=== PATIENT | female | born 1965 | race Caucasian/White ===

== ENCOUNTER 2019-05-30 08:48 | Emergency (ER) | payer BC, OTHER ==
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
[2019-05-30] MEDS: Ketorolac 30 MG/ML SDV IVPUSH ONE (09:18)
[2019-05-30] MEDS: Ondansetron 4 MG/2 ML SDV IV ONE (09:18)
[2019-05-30 09:44] LABS: ANION GAP 14.1; CHLORIDE,CL 103 mmol/L (101-111); SODIUM,NA 138 mmol/L (135-145)
[2019-05-30] MEDS: Sodium Chloride 0.9% 10 ML Syringe FLUSH PRN (10:14)
[2019-05-30 11:06] VITALS: BP 142/60
== END 2019-05-30 10:58 | disposition home or self-care (01) ==
LOC: DL.ED 08:48
DX: S16.1XXA Strain of muscle, fascia and tendon at neck level, initial encounter (principal); M54.5 Low back pain; F41.9 Anxiety disorder, unspecified; F32.9 Major depressive disorder, single episode, unspecified; F17.210 Nicotine dependence, cigarettes, uncomplicated; Z88.2 Allergy status to sulfonamides; Z79.899 Other long term (current) drug therapy; V49.40XA Driver injured in collision with unspecified motor vehicles in traffic accident, initial encounter
CPT/HCPCS: 36415; 72040; 72100; 80053; 81001; 82150; 83690; 85025; 96374; 96375; 99284; J1885; J2405

== ENCOUNTER 2021-03-15 06:34 | Day surgery (SDC) | payer BC, OTHER ==
[~2021-03-15 06:34] MED LIST: Midazolam 1 MG/ML 2 ML SDV ONE; fentaNYL 100 MCG/2 ML SDV ONE
[2021-03-15] MEDS ORDERED: fentaNYL 100 MCG/2 ML SDV IV ONE ×4 (06:35→07:47)
[2021-03-15] MEDS ORDERED: Midazolam 1 MG/ML 2 ML SDV IV ONE ×7 (06:35→07:41)
[2021-03-15] MEDS ORDERED: Sodium Chloride 0.9% 10 ML Syringe FLUSH PRN (07:50)
[2021-03-15] MEDS ORDERED: Dextrose 5%-0.45% NaCl 1,000 ML IV SCH (08:00)
[2021-03-15 09:22] VITALS: PULSE 69
[2021-03-15 10:00] VITALS: BP 115/63
--- NOTE | 2021-03-15 12:57 | OR ---
DATE: 03/15/2021 PROCEDURE: Total colonoscopy and multiple pinch biopsies. INSTRUMENT USED: [id number]-H190DL Olympus video colonoscope. PREMEDICATIONS: Fentanyl 125 mcg intravenous, Versed 4 mg intravenous, nasal O2 cannula. The procedure was done under pulse oximetry, BP recording, and hospital monitor. INDICATION: The patient with chronic unexplained diarrhea, not responsive to medical measures. Colonoscopic examination is done for detection of any polypoid lesions and removal, biopsies to be obtained for any evidence of microscopic colitis, endoscopic hemostasis therapy if needed. DESCRIPTION OF PROCEDURE: Initial rectal exam was unremarkable. Rigid anoscopy was normal. The colonoscope was passed with ease up to the ileocecal area. Photographs were taken of the normal-appearing cecum, identified by appendiceal orifice and thin-lipped ileocecal valve that prevented advancement of the instrument to visualize terminal ileum. No bleeding was noted from any of the visualized areas at the commencement of the examination. The bowel preparation was found to be adequate, [place] scale 2 in all the regions, total score 6. No stricture. No vascular ectasia. No large isolated ulcerations seen. No evidence of diffuse inflammatory bowel disease in the form of friability, contact bleeding, or ulcerations. No polyp or tumor mass identified. Probing the proximal sides of folds and flexures using adequate distention and clearing up the stool material, withdrawal of the scope was made. Multiple pinch biopsies were obtained from the normal-appearing mucosa of the mid transverse colon, mid descending colon, and rectosigmoid, and sent for any histopathologic evidence of microscopic colitis. No bleeding was noted from any of the visualized areas at the completion of examination. IMPRESSION: Normal study. The patient tolerated the procedure well. [facility] /[id number]
== END 2021-03-15 09:59 | disposition home or self-care (01) ==
LOC: DL.ENDO 06:34
PROVIDERS: ATTEND Internal Medicine Gastroenterology
DX: K52.9 Noninfective gastroenteritis and colitis, unspecified (principal); R10.9 Unspecified abdominal pain; F41.1 Generalized anxiety disorder; K21.9 Gastro-esophageal reflux disease without esophagitis; Z98.890 Other specified postprocedural states; Z88.2 Allergy status to sulfonamides
CPT/HCPCS: 45380; J2250; J3010; J7042

== ENCOUNTER 2021-10-30 14:14 | Inpatient (IN) | payer BC ==
[2021-10-30] MEDS ORDERED: LORazepam 2 MG/ML SDV IVPUSH ONE (14:21)
[2021-10-30] MEDS ORDERED: Lidocaine 1% 30 ML SDV INJECT ONE (14:22)
[2021-10-30] MEDS ORDERED: Midazolam 1 MG/ML 2 ML SDV IVPUSH ONE ×2 (14:24→15:28)
[2021-10-30] MEDS ORDERED: fentaNYL 100 MCG/2 ML SDV ONE (14:30)
--- NOTE | 2021-10-30 14:34 | CR ---
EXAMINATION: Chest 1V Frontal SEX: Female AGE: 56 years CLINICAL HISTORY: 56-year-old female with clinical SOB. Comparison CXR July 2018. INTERPRETATION: No acute new cardiopulmonary abnormality. 1. Normal cardiac silhouette (size and configuration). 2. No vascular congestion, cephalization of flow, alveolar edema or pleural effusions (chronic mild blunting right costophrenic sulcus). 3. No new lung mass or hilar lymphadenopathy since July 2018. 4. No alveolar infiltrate, air bronchograms or peripheral "groundglass" interstitial lung densities. 5. No pneumothorax or pneumomediastinum. No free subdiaphragmatic air. 6. Probable chronic rotator cuff damage right shoulder and apparent old healed fracture lateral right ninth rib
[2021-10-30] MEDS ORDERED: Midazolam 1 MG/ML 2 ML SDV ONE (14:38)
[2021-10-30] MEDS ORDERED: fentaNYL 100 MCG/2 ML SDV IVPUSH ONE ×3 (15:28→18:14)
[2021-10-30] MEDS ORDERED: Ondansetron 4 MG/2 ML SDV IV ONE (15:33)
--- NOTE | 2021-10-30 15:34 | EDM.PDOC ---
<Camron Irizarry - Last Filed: 10/30/21 16:31> ED HPI GENERAL MEDICAL PROBLEM - General Chief Complaint: Respiratory Problem Stated Complaint: AMBULANCE Time Seen by Provider: 10/30/21 14:20 Right Chest Pain Score (Numeric/FACES): 10 - Related Data Allergies Allergy/AdvReac Type Severity Reaction Status Date / Time Sulfa (Sulfonamide Allergy Intermediate Hives Verified 03/15/21 06:38 Antibiotics) Home Meds: Home Meds Albuterol Sulfate [Proair Respiclick] 1 puff INH ASDIRECTED PRN 05/24/15 [History] Ascorbic Acid 1 tab PO DAILY 05/24/15 [History] Ca/D3/Mag Ox/Zinc/Edge Plugger/Agusto/Bor [Calcium 600+D3 Plus Caplet] 1 tab PO DAILY 05/24/15 [History] Cyanocobalamin (Vitamin B-12) [Vitamin B-12] 1 tab PO DAILY 05/24/15 [History] Fish Oil/[place]-3 Fatty Acids [Fish Oil 1,000 MG] 1 tab PO DAILY 05/24/15 [History] Ibuprofen [Advil] 600 mg PO BID PRN 05/24/15 [History] Multivitamin with Minerals [Multiple Vitamin] 1 tab PO DAILY 05/24/15 [History] Acetaminophen [Tylenol] 650 mg PO Q4H PRN 05/31/15 [History] Dextroamphetamine/Amphetamine [Adderall 7.5 mg Tablet] 7.5 mg PO BID 12/23/16 [History] Cyclobenzaprine [Flexeril] 10 mg PO TID PRN 03/15/21 [History] DULoxetine [Cymbalta] 60 mg PO BID 03/15/21 [History] Gabapentin [Neurontin] 800 mg PO TID 03/15/21 [History] Medical Marijuana 1 unit INH DAILY PRN 03/15/21 [History] Montelukast [Singulair] 10 mg PO DAILY 03/15/21 [History] Omeprazole 20 mg PO BIDAC 03/15/21 [History] Past Medical History HEENT History: Reports: Hard of Hearing, Impaired Vision, Sinusitis Cardiovascular History: Reports: None Respiratory History: Reports: Asthma Other Respiratory History: Environmental allergies Gastrointestinal History: Reports: GERD, Irritable Bowel Syndrome Genitourinary History: Reports: None TILE MASON History: Reports: Spontaneous Musculoskeletal History: Reports: Arthritis, Fibromyalgia Neurological History: Reports: None Psychiatric History: Reports: ADHD, Anxiety, Depression Endocrine/Metabolic History: Reports: None Hematologic History: Reports: None Immunologic History: Reports: None Oncologic (Cancer) History: Reports: None Dermatologic History: Reports: None - Infectious Disease History Infectious Disease History: Reports: MRSA, Mumps, Shingles - Past Surgical History Head Surgeries/Procedures: Reports: None HEENT Surgical History: Reports: Adenoidectomy, Naso-Sinus Surgery, Tonsillectomy Other HEENT Surgeries/Procedures: nasal sinus surgery Cardiovascular Surgical History: Reports: None Respiratory Surgical History: Reports: None GI Surgical History: Reports: Colonoscopy, EGD Female Surgical History: Reports: Hysterectomy, LEEP Other Female Surgeries/Procedures: vaginal cervical LEEP treatment, cyst removal Endocrine Surgical History: Reports: None Neurological Surgical History: Reports: None Musculoskeletal Surgical History: Reports: Carpal Tunnel Social & Family History - Family History Family Medical History: No Pertinent Family History - Tobacco Use Tobacco Use Status *Q: Current Every Day Tobacco User Years of Tobacco use: 30 Packs/Tins Daily: 0.5 - Caffeine Use Caffeine Use: Reports: None Caffeine Use Comment: coffee 3 cups daily. rare soda - Recreational Drug Use Recreational Drug Use: No - Living Situation & Occupation Living situation: Reports: with Family ED RESPIRATORY PROCEDURES - Chest Tube Insertion Chest Tube Location: Right Site: Mid Axillary Line, Intercostal Space: (5) Tube Size: 28Fr Skin Prep: Betadine Local Anesthesia - Lidocaine (Xylocaine): 1% Plain Local Anesthetic Volume: Other (6cc) Nagel of [place]: Yes Number of Attempts: 1 Tube Sutured to Skin: Yes Post procedure tube position confirmed by: by CXR Tube Connected to Suction: Yes Course - Re-Assessments/Exams Free Text/Narrative Re-Assessment/Exam: 10/30/21 16:31 At the time of chest tube insertion the pt was in distress. Verbal consent was obtained from the pt for the procedure with Dr. Casey and RNs present when pt offered consent. Departure - Departure Disposition: Refer to Observation Clinical Impression: Iatrogenic pneumothorax, Pneumothorax, right - Discharge Information Forms: ED Department Discharge Sepsis Event Note (ED) - Evaluation Sepsis Screening Result: No Definite Risk <Manuel Casey - Last Filed: 10/30/21 16:45> ED HPI GENERAL MEDICAL PROBLEM - General Source of Information: Reports: Patient, RN, RN Notes Reviewed History Limitations: Reports: No Limitations - History of Present Illness INITIAL COMMENTS - FREE TEXT/NARRATIVE: Pt sent from [facility] by wheelchair with c/o sudden onset of right chest pain with dyspnea and anxiety that occurred during a trigger point injection to the right trapezius region by a pain clinic nurse practitioner next door to the hospital at the [facility]. Pt rates the pain 10/10. Breathing and movement of the thorax aggravates the pain. Nothing alleviates the pain. Onset: Today, Sudden Onset Date: 10/30/21 Onset Time: 14:00 (approximate time per pt.) Duration: Constant, Getting Worse Location: Reports: Chest Quality: Reports: Ache, Pressure, Sharp Severity: Severe Associated Symptoms: Reports: No Other Symptoms Past Medical History HEENT History: Reports: Allergic Rhinitis Respiratory History: Reports: Asthma, COPD Musculoskeletal History: Reports: Arthritis, Back Pain, Chronic, Fibromyalgia, Neck Pain, Chronic Neurological History: Reports: Other (See Below) (Sciatica. Cervical radiculopathy.) Social & Family History - Family History Family Medical History: No Pertinent Family History - Tobacco Use Tobacco Use Status *Q: Current Every Day Tobacco User - Living Situation & Occupation Living situation: Reports: , with Spouse, with Family ED ROS GENERAL - Review of Systems Review Of Systems: Comprehensive ROS is negative, except as noted in HPI. ED EXAM, GENERAL - Physical Exam Exam: See Below Exam Limited By: No Limitations General Appearance: Alert, WD/WN, Anxious, Moderate Distress Eye Exam: Bilateral Eye: Normal Inspection Nose: Normal Inspection Throat/Mouth: Normal Inspection, Normal Lips, Normal Voice, No Airway Compromise Head: Atraumatic, Normocephalic Neck: Normal Inspection, Supple, Non-Tender, Full Range of Motion. No: Lymphadenopathy (L), Lymphadenopathy (R) Respiratory/Chest: Respiratory Distress, Decreased Breath Sounds (Rt chest), Splinting. No: Crackles, Rales, Rhonchi, Wheezing, Stridor, Pleural Rub Cardiovascular: Normal Peripheral Pulses, Regular Rate, Rhythm, No Edema, Tachycardia GI/Abdominal: Normal Bowel Sounds, Soft, Non-Tender Back Exam: Normal Inspection Extremities: Normal Inspection Neurological: Alert, Oriented, CN II-XII Intact, Normal Cognition, No Motor/Sensory Deficits Psychiatric: Anxious, Tearful Skin Exam: Warm, Dry, Intact, Normal Color, No Rash Course - Vital Signs Last Recorded V/S: Last Vital Signs Temp 97.4 F 10/30/21 14:19 Pulse 124 H 10/30/21 14:19 Resp 36 H 10/30/21 14:19 BP 138/124 H 10/30/21 14:19 Pulse Ox 99 10/30/21 14:19 - Orders/Labs/Meds Orders: Active Orders 24 hr Category Date Time Status CORONAVIRUS COVID-19 DALJIT [MOLEC] Stat Lab 10/30/21 16:12 Ordered Meds: Medications Discontinued Medications Generic Name Dose Route Start Last Admin Trade Name Freq PRN Reason Stop Dose Admin Fentanyl Confirm 10/30/21 14:30 10/30/21 15:29 Fentanyl 100 Mcg/2 Ml Sdv Administered 10/30/21 14:31 Not Given Dose 100 mcg .ROUTE .STK-MED ONE Fentanyl 100 mcg 10/30/21 15:28 10/30/21 14:27 Fentanyl 100 Mcg/2 Ml Sdv IVPUSH 10/30/21 15:29 100 mcg ONETIME ONE Administration Protocol Fentanyl 50 mcg 10/30/21 15:32 10/30/21 16:01 Fentanyl 100 Mcg/2 Ml Sdv IVPUSH 10/30/21 15:33 50 mcg ONETIME ONE Administration Protocol Cefazolin Sodium 1 gm/ Sodium 50 mls @ 100 mls/hr 10/30/21 15:36 10/30/21 16:01 Chloride IV 10/30/21 16:05 100 mls/hr ONETIME ONE Administration Lidocaine HCl 30 ml 10/30/21 14:22 10/30/21 14:27 Lidocaine 1% 30 Ml Sdv INJECT 10/30/21 14:23 30 ml ONETIME ONE Administration Lorazepam 2 mg 10/30/21 14:21 Lorazepam 2 Mg/Ml Sdv IVPUSH 10/30/21 14:22 ONETIME ONE Midazolam HCl 2 mg 10/30/21 14:24 10/30/21 14:44 Midazolam 1 Mg/Ml 2 Ml Sdv IVPUSH 10/30/21 14:25 2 mg ONETIME ONE Administration Midazolam HCl Confirm 10/30/21 14:38 10/30/21 15:29 Midazolam 1 Mg/Ml 2 Ml Sdv Administered 10/30/21 14:39 Not Given Dose 2 mg .ROUTE .STK-MED ONE Midazolam HCl 2 mg 10/30/21 15:28 10/30/21 14:27 Midazolam 1 Mg/Ml 2 Ml Sdv IVPUSH 10/30/21 15:29 2 mg ONETIME ONE Administration Ondansetron HCl 4 mg 10/30/21 15:33 10/30/21 16:01 Ondansetron 4 Mg/2 Ml Sdv IV 10/30/21 15:34 4 mg ONETIME ONE Administration - Radiology Interpretation Free Text/Narrative:: XR Chest: Rt pneumothorax, see Rad. report. XR Chest s/p chest tube placement: satisfactory tube placement per Rad. report. Departure - Departure Time of Disposition: 16:44 (admitted to Dr. Keiry Gallardo) Condition: Good - Discharge Information *PRESCRIPTION DRUG MONITORING PROGRAM REVIEWED*: Not Applicable *COPY OF PRESCRIPTION DRUG MONITORING REPORT IN PATIENT MG: Not Applicable Sepsis Event Note (ED) - Focused Exam Vital Signs: Vital Signs Temp Pulse Resp BP Pulse Ox 10/30/21 14:19 97.4 F 124 H 36 H 138/124 H 99 - My Orders Last 24 Hours: My Active Orders 10/30/21 16:12 CORONAVIRUS COVID-19 DALJIT [MOLEC] Stat - Assessment/Plan Last 24 Hours: My Active Orders 10/30/21 16:12 CORONAVIRUS COVID-19 DALJIT [MOLEC] Stat
--- NOTE | 2021-10-30 15:35 | CR ---
EXAMINATION: Chest 1V Frontal SEX: Female AGE: 56 years CLINICAL HISTORY: 56-year-old female small right pneumothorax (post muscle injection). Chest tube placement. INTERPRETATION: 1. Oxygen cannula; external front desk monitor leads; new chest tube right hemithorax. 2. Satisfactory resolution "small right pneumothorax" demonstrated earlier today. 3. No evidence of pneumothorax, subcutaneous emphysema, or pneumomediastinum post chest tube insertion. No shift of the heart or mediastinal structures. 4. No signs of heart failure, lung mass or lobar consolidation. CONCLUSION: Satisfactory right chest tube placement.
[2021-10-30] MEDS ORDERED: ceFAZolin 1 GM in Sodium Chloride 0.9% 50 ML IV ONE (15:36)
[2021-10-30] MEDS ORDERED: HYDROmorphone 0.5 MG/0.5 ML Syringe IVPUSH ONE (17:12)
[2021-10-30] MEDS ORDERED: Sodium Chloride 0.9% 10 ML Syringe FLUSH PRN (19:59)
[2021-10-30] MEDS ORDERED: HYDROmorphone 0.5 MG/0.5 ML Syringe IVPUSH PRN (19:59)
[2021-10-30] MEDS ORDERED: HYDROmorphone 1 MG/ML Syringe ONE ×2 (20:34→20:35)
[2021-10-30] MEDS ORDERED: HYDROmorphone 1 MG/ML Syringe IVPUSH ONE (20:44)
[2021-10-30] MEDS: LORazepam 2 MG/ML SDV IVPUSH PRN (21:05)
[2021-10-30] MEDS: Ondansetron 4 MG/2 ML SDV IVPUSH PRN (21:45)
[2021-10-30] MEDS: Lactated Ringers 1,000 ML IV SCH (21:46)
[2021-10-30] MEDS ORDERED: Omeprazole 20 MG Cap.CR PO PRN (22:32)
[2021-10-30] MEDS ORDERED: Acetaminophen 325 MG Tab PO PRN (22:32)
[2021-10-30] MEDS ORDERED: Albuterol 0.083% 2.5 MG/3 ML Neb Soln INH PRN (22:37)
--- NOTE | 2021-10-30 22:56 | CR ---
PROCEDURE INFORMATION: Exam: XR Chest Exam date and time: 10/30/2021 9:18 PM Age: 56 years old Clinical indication: Other: Pain TECHNIQUE: Imaging protocol: XR of the chest. Views: 1 view. COMPARISON: CR Chest 1V Frontal 10/30/2021 2:53 PM FINDINGS: Tubes, catheters and devices: Right-sided chest tube is in place. Lungs: Unremarkable. No consolidation. Pleural spaces: No residual pneumothorax. Heart/Mediastinum: Unremarkable. No cardiomegaly. Bones/joints: Unremarkable. IMPRESSION: No residual pneumothorax.
--- NOTE | 2021-10-30 23:30 | HP ---
HISTORY OF PRESENT ILLNESS: The patient is a 56-year-old female with history of fibromyalgia, presented to pain management clinic for trigger point injection for fibromyalgia, and during this procedure, she felt pain and difficulty breathing and the patient was transported to emergency room. The patient states that she felt right backache and this pain went all around and she felt she is going to suffocate. PAST MEDICAL HISTORY: She has fibromyalgia and bronchitis. PAST SURGICAL HISTORY: Lip surgery, ovarian surgery for cyst. REVIEW OF SYSTEMS: Twelve-point review of systems is negative except as in history of present illness. Also, the patient has dry cough. ALLERGIES: The patient is allergic to sulfa. SOCIAL HISTORY: She smokes 10 cigarettes a day for the past 30 years. No alcohol use. No drug use. 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 FAMILY HISTORY: Noncontributory. The patient could not give history due to pain. PHYSICAL EXAMINATION: Vital Signs: At presentation in the emergency room, temperature 97.4; pulse rate 124; blood pressure 138/124 with mean blood pressure 128; respiratory rate is 6, shallow; oxygen saturation 99%, oxygen flow rate 15. At admission, her vital signs were temperature of 98.4, pulse rate 84, blood pressure 125/76 with a mean of 92, respiratory rate 18, oxygen saturation 93% on 3 L. HEENT: The patient's head is atraumatic and normocephalic. Pupils are equally reactive to light. Neck: Supple. No thyromegaly. No lymphadenopathy. Heart: S1 and S2. Regular rhythm and rate. No murmur. Lungs: Breath sounds are present in bilateral lungs. There is a chest tube inserted in the right lower chest with continuous suction. Abdomen: Soft. Nontender. Positive bowel sounds. Extremities: No edema. LABORATORY DATA: The patient's CBC and CMP are pending. Serology, SARS COVID was positive. IMAGING: Chest x-ray shows normal cardiac silhouette. No vascular congestion or cephalization. No new lung mass or hilar lymphadenopathy. There was pneumothorax in the right upper lung. Repeat chest x-ray done at 2:53, after chest tube insertion, showed that the patient has oxygen , satisfactory resolution of small right pneumothorax demonstrated earlier today. No evidence of pneumothorax, subcutaneous emphysema, or pneumomediastinum post chest tube insertion. No shift of the heart or mediastinal structures. No signs of heart failure, lung mass, or lobar consolidation. ASSESSMENT AND PLAN: A 56-year-old female, presented to emergency room due to pneumothorax. She is status post chest tube insertion. The patient was supposed to be transferred to [facility], but due to bed not available, the patient has to stay here until tomorrow morning. She was admitted inpatient until further arrangement can be made. For pain, the patient will receive Dilaudid 1 mg q.2 hours p.r.n. as needed for pain and also Ativan 1 mg p.o. q.6 hours p.r.n. for anxiety. For DVT prophylaxis, the patient was started on Lovenox 40 mg subcutaneous daily and also buspirone 5 mg p.o. b.i.d. For ADHD, the patient has been continued with Adderall XR 7.5 mg p.o. b.i.d. For COPD, the patient will continue with montelukast 10 mg p.o. at bedtime and albuterol sulfate inhaler 2 puffs inhaled q.6 hours as needed, Augmentin 1 tablet p.o. b.i.d. For fibromyalgia, the patient will be continued with gabapentin 800 mg p.o. t.i.d. and duloxetine 60 mg p.o. b.i.d. For GI prophylaxis, omeprazole [address] [facility] /[id number]
[2021-10-30] MEDS: Codeine/Promethazine 10-6.25 MG/5 ML Syrup 5 ML UD Cup PO PRN (23:52)
[2021-10-30] MEDS: HYDROmorphone 1 MG/ML Syringe IVPUSH PRN (23:52)
[2021-10-31] MEDS: HYDROmorphone 1 MG/ML Syringe IVPUSH PRN ×6 (02:54→20:48)
[2021-10-31] MEDS: Codeine/Promethazine 10-6.25 MG/5 ML Syrup 5 ML UD Cup PO PRN ×2 (05:38→12:10)
[2021-10-31 06:50] LABS: ANION GAP 13.5 mEq/L (7-13); CHLORIDE,CL 98 mmol/L (98-107); SODIUM,NA 137 mmol/L (136-145)
[2021-10-31] MEDS ORDERED: [UNRECOGNIZED DRUG - OTHER] PO SCH (09:00)
[2021-10-31] MEDS ORDERED: AMPHETAMINE PO SCH ×2 (09:00)
[2021-10-31] MEDS ORDERED: Multivitamins with Iron/Calcium/Folic Acid/Minerals Tab PO SCH (09:00)
[2021-10-31] MEDS ORDERED: DEXTROAMPHETAMINE PO SCH ×2 (09:00)
[2021-10-31] MEDS ORDERED: Non-Formulary Medication 1 Each (Fish Oil/Omega-3 Fatty Acids [Fish Oil 1,000 Mg] 1 GM Cap PO SCH (09:00)
[2021-10-31] MEDS ORDERED: [UNRECOGNIZED DRUG - OTHER] PO SCH (09:00)
[2021-10-31] MEDS: DULoxetine 30 MG Cap PO SCH ×2 (09:34→20:48)
[2021-10-31] MEDS: Enoxaparin 40 MG/0.4 ML Syringe SUBCUT SCH (09:35)
[2021-10-31] MEDS: Gabapentin 400 MG Cap PO SCH ×3 (09:36→20:48)
[2021-10-31] MEDS: Amoxicillin/Clavulanate K 875-125 MG Tab PO SCH ×2 (10:57→20:48)
[2021-10-31] MEDS: Lactated Ringers 1,000 ML IV SCH ×2 (10:59→20:49)
[2021-10-31] MEDS: busPIRone 15 MG Tab PO SCH ×2 (12:11→20:48)
[2021-10-31] MEDS: Ondansetron 4 MG/2 ML SDV IVPUSH PRN (12:35)
[2021-10-31] MEDS: LORazepam 2 MG/ML SDV IVPUSH PRN ×2 (14:20→22:09)
--- NOTE | 2021-10-31 16:45 | CR ---
EXAMINATION: Chest 1V Frontal SEX: Female AGE: 56 years CLINICAL HISTORY: 56-year-old female with chest tube right hemithorax (treatment pneumothorax diagnosed AM on previous day. monitoring of pneumothorax Interpretation: (Rotated upright AP portable chest) Chest tube appears to have been "pulled back" slightly and straightened since comparison 1453 hour film 30 October. (Positional artifact?) No sign of recurrent or new pneumothorax. No underlying atelectasis/collapse. No pleural effusion. Normal cardiac silhouette and mediastinal structures.
[2021-10-31] MEDS ORDERED: LORazepam 2 MG/ML SDV IVPUSH ONE (18:00)
[2021-10-31 19:39] LABS: CORONAVIRUS COVID-19 NAA NEGATIVE (NEGATIVE)
--- NOTE | 2021-10-31 20:36 | PN ---
DATE: 10/31/2021 SUBJECTIVE: The patient was seen today. Her pain is better controlled. I have tried to make arrangements for the patient to be transferred to [facility] and I spoke with the hospitalist on-call. He recommended clamping of the tube and repeat chest x-ray after 4 hours and if no pneumothorax, chest tube should be removed. OBJECTIVE: Vital Signs: In the morning, the patient had a temperature of 98.6, pulse rate of 78, blood pressure 126/70, respiratory rate 20, oxygen saturation 98% on 2 L nasal cannula. HEENT: Her head is atraumatic, normocephalic. Pupils equally reactive to light. Neck: Supple. No thyromegaly. No lymphadenopathy. Lungs: Audible breath sounds bilateral. Clear to auscultation. Heart: S1, S2. Regular rhythm and rate. No murmur. Abdomen: Soft. Nontender. Positive bowel sounds. Extremities: No edema. IMAGING: Chest X-ray: Repeat chest x-ray at 4 o'clock shows no pneumothorax and chest tube appears to have been pulled back slightly and straightened since comparison to 1543 hours film on October 30. Chest tube was removed and the patient had an occlusive dressing placed with Vaseline and sterile compress. ASSESSMENT AND PLAN: Pneumothorax is resolved. Chest tube was clamped and removed after 4 hours after clamping after repeat chest x-ray showed no pneumothorax. We will repeat chest x-ray in the morning and if no pneumothorax or no difficulty breathing or signs of recurrent pneumothorax, then the patient can be discharged home. The patient had an occlusive dressing placed with Vaseline after the chest tube was removed. The patient has fibromyalgia, and for fibromyalgia, she will be continued with gabapentin 800 mg p.o. 3 times a day, duloxetine 60 mg p.o. b.i.d. For chronic obstructive pulmonary disease with chronic bronchitis, the patient will be continued with montelukast 10 mg p.o. at bedtime, albuterol sulfate 2 puffs inhaled every 6 hours, and Augmentin 1 tablet p.o. b.i.d. For GI prophylaxis, the patient will be given omeprazole 20 mg p.o. b.i.d. For DVT prophylaxis, Lovenox 40 mg subcutaneous daily. She will be getting Ativan 1 mg IV every 6 hours as needed for anxiety. Discharge planning tomorrow if chest x-ray is negative. [facility] /[id number]
[2021-10-31] MEDS: Montelukast 10 MG Tab PO SCH (20:48)
--- NOTE | 2021-10-31 21:30 | CR ---
PROCEDURE INFORMATION: Exam: XR Chest Exam date and time: 10/31/2021 9:01 PM Age: 56 years old Clinical indication: Other: Tube removal; Additional info: Chest tube removed TECHNIQUE: Imaging protocol: XR of the chest. Views: 1 view. COMPARISON: CR Chest 1V Frontal 10/31/2021 4:09 PM FINDINGS: Lungs: Unremarkable. No consolidation. Pleural spaces: Unremarkable. No pleural effusion. No pneumothorax. Heart/Mediastinum: Unremarkable. No cardiomegaly. Bones/joints: No evidence of acute osseous abnormality. Soft tissues: Mild right chest wall soft tissue emphysema. IMPRESSION: No evidence of right pneumothorax following removal of the chest tube.
[2021-10-31] MEDS: Nicotine 14 MG/24 Hr Patch TRDERM SCH (22:09)
[2021-10-31] MEDS: Simethicone 80 MG Tab.Chew PO PRN (22:09)
[2021-11-01] MEDS: HYDROmorphone 1 MG/ML Syringe IVPUSH PRN ×3 (00:36→06:33)
[2021-11-01] MEDS: LORazepam 2 MG/ML SDV IVPUSH PRN (06:34)
[2021-11-01 06:55] LABS: ANION GAP 10.2 mEq/L (7-13); CHLORIDE,CL 104 mmol/L (98-107); SODIUM,NA 142 mmol/L (136-145)
--- NOTE | 2021-11-01 08:58 | CR ---
PROCEDURE INFORMATION: Exam: XR Chest Exam date and time: 11/01/2021 7:42 AM Age: 56 years old Clinical indication: Other: Post pneumothorax; Additional info: Post-pneumothorax TECHNIQUE: Imaging protocol: XR of the chest. Views: 1 view. COMPARISON: CR Chest 1V Frontal 10/31/2021 9:01 PM FINDINGS: Lungs: New faint ground-glass opacification in left lower lobe. Mild shallow inspiration. Pleural spaces: No pneumothorax. Unchanged very mild right costophrenic angle blunting. Increased left costophrenic angle blunting. Heart/Mediastinum: Normal heart and cardio-mediastinal silhouette. Vasculature: Normal pulmonary vessels and width of the vascular pedicle. Bones/joints: Intact and normally aligned. No suspicious lesion. Soft tissues: Resolved right flank subcutaneous gas. There is residual edema following chest tube removal. IMPRESSION: 1. Resolved right pneumothorax. 2. New subtle left lower lobe airspace opacification and mild costophrenic angle blunting, atelectasis versus infectious infiltrate. Clinical correlation is recommended.
[2021-11-01] MEDS: DULoxetine 30 MG Cap PO SCH ×2 (09:22→21:10)
[2021-11-01] MEDS: Multivitamin Tab PO SCH (09:23)
[2021-11-01] MEDS: Amoxicillin/Clavulanate K 875-125 MG Tab PO SCH ×2 (09:23→21:14)
[2021-11-01] MEDS: Gabapentin 400 MG Cap PO SCH ×3 (09:24→21:10)
[2021-11-01] MEDS: Enoxaparin 40 MG/0.4 ML Syringe SUBCUT SCH ×2 (09:24→09:36)
[2021-11-01] MEDS: Nicotine 14 MG/24 Hr Patch TRDERM SCH ×2 (09:25→09:36)
[2021-11-01] MEDS: busPIRone 15 MG Tab PO SCH ×2 (09:28→21:13)
[2021-11-01] MEDS: methylPREDNISolone Sodium Succinate 40 MG/1 ML SDV IVPUSH SCH (17:24)
--- NOTE | 2021-11-01 18:17 | PN ---
DATE: 11/01/2021 HISTORY OF PRESENT ILLNESS: The patient was seen today. She was drowsy in the morning as she received multiple dosages of Dilaudid 1 mg. Also, she received Ativan in the morning around 6:30, she received 1 mg of Ativan. The patient was seen around 10 a.m. and she stated she does not feel comfortable to go home. Repeat chest x-ray showed that she has a new septal left lower lobe airspace opacification and mild costophrenic angle blunting, atelectasis versus infiltrate. Clinical correlation is recommended and right pneumothorax. The patient was also wheezing. I have discussed with the patient's sister and with her and the patient will be kept in the hospital for another day for observation and to receive treatment for COPD exacerbation. PHYSICAL EXAMINATION: Vital Signs: Today, temperature 98.8, pulse 93, blood pressure 126/68, respiratory rate 20, oxygen saturation 92% at room air. HEENT: Her head is atraumatic, normocephalic. Pupils reactive to light. Neck: Supple. No thyromegaly. No lymphadenopathy. Lungs: Bilateral lung wheezing. Heart: S1, S2. Regular rhythm and rate. Chest: Also on the right lower thorax, the patient has an occlusive patch. Abdomen: Soft, nontender. Positive bowel sounds. Extremities: No edema. Neurologic: She is alert, oriented x3. No gross focal neurologic deficits. LABORATORY DATA: Today, WBC 7.3, hemoglobin 12.4, hematocrit 37.4, platelet count 385. Sodium 142, potassium 4.2, chloride 104, CO2 of 32, anion gap 10.2, glucose 100, calcium 8.5, total bilirubin 0.3, AST 15, ALT 18, alkaline phosphatase 45, total protein 5.9, albumin 2.9, globulin 3, and repeat COVID test was negative. ASSESSMENT AND PLAN: 1. Status post pneumothorax in right lung. No recurrence of the pneumothorax with repeat chest x-ray today. The patient has occlusive dressing with Vaseline that has to be replaced after 48 hours. 2. Chronic obstructive pulmonary disease exacerbation. We will continue the patient with Augmentin 1 tablet p.o. twice a day and montelukast 10 mg p.o. daily. She was started on Solu-Medrol 40 mg q.6 hours, albuterol sulfate 2 puffs inhalatory every 6 hours p.r.n. as needed for shortness of breath. 3. For fibromyalgia, the patient will be continued with gabapentin 800 mg p.o. 3 times a day and duloxetine 60 mg p.o. b.i.d. 4. For deep venous thrombosis prophylaxis, she will be given Lovenox 40 mg subcutaneous daily and for gastrointestinal prophylaxis, she will be treated with omeprazole 20 mg p.o. b.i.d. 5. For left lung infiltrate, likely atelectasis as the patient is currently on antibiotics and her WBC is normal, went down. We recommend incentive spirometry and we will observe. [facility] /[id number]
[2021-11-01] MEDS ORDERED: Ketorolac 30 MG/ML SDV IVPUSH ONE (18:33)
[2021-11-01] MEDS ORDERED: Ketorolac 30 MG/ML SDV IM ONE (18:38)
[2021-11-01] MEDS: Acetaminophen 325 MG Tab PO PRN (21:11)
[2021-11-01] MEDS: Montelukast 10 MG Tab PO SCH (21:12)
[2021-11-01] MEDS: Codeine/Promethazine 10-6.25 MG/5 ML Syrup 5 ML UD Cup PO PRN (21:16)
[2021-11-01] MEDS ORDERED: diphenhydrAMINE 50 MG Cap PO PRN (22:24)
[2021-11-02] MEDS: methylPREDNISolone Sodium Succinate 40 MG/1 ML SDV IVPUSH SCH (00:51)
[2021-11-02] MEDS ORDERED: predniSONE 20 MG Tab PO SCH (08:00)
[2021-11-02] MEDS: Enoxaparin 40 MG/0.4 ML Syringe SUBCUT SCH (09:00)
[2021-11-02] MEDS: Gabapentin 400 MG Cap PO SCH (09:02)
[2021-11-02] MEDS: DULoxetine 30 MG Cap PO SCH (09:02)
[2021-11-02] MEDS: Multivitamin Tab PO SCH (09:03)
[2021-11-02] MEDS: Nicotine 14 MG/24 Hr Patch TRDERM SCH (09:03)
[2021-11-02] MEDS: Amoxicillin/Clavulanate K 875-125 MG Tab PO SCH (09:03)
[2021-11-02] MEDS: busPIRone 15 MG Tab PO SCH (09:04)
[2021-11-02] MEDS: Acetaminophen 325 MG Tab PO PRN (09:13)
[2021-11-02] MEDS: Simethicone 80 MG Tab.Chew PO PRN (09:14)
--- NOTE | 2021-11-02 12:16 | PCM.DCSUM1 ---
Discharge Summary - Hospital Course Brief History: see below Diagnosis: Stroke: No Modified [place] Scale: No Symptoms at All Modified [place] Scale Score: 0 - Discharge Data Discharge Date: 11/02/21 Discharge Disposition: Home, Self-Care 01 Condition: Good - Referral to Home Health Primary Care Physician: PCP None - Patient Summary/Data Hospital Course: Citlalli Hackett is a 56 year old woman with PMH most significant for COPD. She was sent from [facility] by wheelchair to the ED with c/o sudden onset of right chest pain with dyspnea and anxiety that occurred during a trigger point injection to the right trapezius region by a pain clinic nurse practitioner next door to the hospital at the [facility]. small right apical iatrogenic pneumothorax was noted on CXR. chest tube placed emergently. supplemental oxygen used briefly. She was covid positive recently. chest tube with successful clamp trial on 10/30 after which it was removed and occlusive dressing was placed for 48 hrs per recommendation of MD at the time. repeat CXR the following day for increased subjective SOB with no increased O2 requirement showed atelectasis in left base. Pt was started on steroids and abx but these were discontinued after review of chart showed that there was no increased WBC and no increased oxygen requirement. She was monitored overnight again and continued to be hemodynamically stable on room air. chest tube site C/D/I. bandage changed to light gauze dressing. she was thought to be medically stable for discharge. She will need to continue to use her IS at discharge, education was provided for her with teach back method prior to discharge. no steroids, pain medication or abx at discharge. follow up closely with PCP as outpatient. avoid smoking and second hand smoke. do not soak the chest tube insertion site. soapy water may run over it. pat to dry. no other questions at the time of discharge. - Patient Instructions Diet: Usual Diet as Tolerated Driving: May Drive Today Showering/Bathing: May Shower Showering/Bathing, Other: let soapy water run over chest tube insertion site, do not soak or scrub Wound/Incision Care: Change Dressing Daily Wound/Incision, Other: keep light gauze dressing over area. if wet from shower, pat to dry - Discharge Plan *PRESCRIPTION DRUG MONITORING PROGRAM REVIEWED*: Not Applicable *COPY OF PRESCRIPTION DRUG MONITORING REPORT IN PATIENT MG: Not Applicable Tobacco Cessation Medication: Prescription Refused Home Medications: Home Meds Fish Oil/Raymond-3 Fatty Acids [Fish Oil 1,000 MG] 1 tab PO DAILY 05/24/15 [History] Multivitamin with Minerals [Multiple Vitamin] 1 tab PO DAILY 05/24/15 [History] Acetaminophen [Tylenol] 650 mg PO Q4H PRN 05/31/15 [History] DULoxetine [Cymbalta] 60 mg PO BID 03/15/21 [History] Gabapentin [Neurontin] 800 mg PO TID 03/15/21 [History] Montelukast [Singulair] 10 mg PO BEDTIME 03/15/21 [History] Omeprazole 20 mg PO BIDAC PRN 03/15/21 [History] Albuterol Sulfate [Proair Digihaler] 2 puff INH Q6HR PRN 10/30/21 [History] Amphetamine/Dextroamphetamine [Adderall XR] 7.5 mg PO BID 10/30/21 [History] busPIRone [Buspar] 5 mg PO BID 10/30/21 [History] Check Patch 1 ea TRDERM BEDTIME each 11/02/21 [Rx] Oxygen Therapy Mode: Room Air Referrals: Catarina Angulo NP [Ordering Only Provider] - - Discharge Summary/Plan Comment DC Time >30 min.: Yes Total # of Minutes for Discharge Time: 45 Discharge Summary/Plan Comment: Citlalli Hackett is a 56 year old woman with PMH most significant for COPD. She was sent from [facility] by wheelchair to the ED with c/o sudden onset of right chest pain with dyspnea and anxiety that occurred during a trigger point injection to the right trapezius region by a pain clinic nurse practitioner next door to the hospital at the [facility]. small right apical iatrogenic pneumothorax was noted on CXR. chest tube placed emergently. supplemental oxygen used briefly. She was covid positive recently. chest tube with successful clamp trial on 10/30 after which it was removed and occlusive dressing was placed for 48 hrs per recommendation of MD at the time. repeat CXR the following day for increased subjective SOB with no increased O2 requirement showed atelectasis in left base. Pt was started on steroids and abx but these were discontinued after review of chart showed that there was no increased WBC and no increased oxygen requirement. She was monitored overnight again and continued to be hemodynamically stable on room air. chest tube site C/D/I. bandage changed to light gauze dressing. she was thought to be medically stable for discharge. She will need to continue to use her IS at discharge, education was provided for her with teach back method prior to discharge. no steroids, pain medication or abx at discharge. follow up closely with PCP as outpatient. avoid smoking and second hand smoke. do not soak the chest tube insertion site. soapy water may run over it. pat to dry. no other questions at the time of discharge. - General Info Date of Service: 11/02/21 Subjective Update: doing well today. back to baseline. still has some pain in her bilateral levator scapulae. Functional Status: Reports: Pain Controlled, Tolerating Diet, Ambulating, Urinating, New Symptoms, Incentive Spirometry - Review of Systems General: Reports: No Symptoms HEENT: Reports: No Symptoms Pulmonary: Reports: Pleuritic Chest Pain (with deep breathing. ), Cough. Denies: Hemoptysis, Wheezing Cardiovascular: Reports: No Symptoms Gastrointestinal: Reports: No Symptoms Genitourinary: Reports: No Symptoms Musculoskeletal: Reports: No Symptoms Skin: Reports: No Symptoms Neurological: Reports: No Symptoms Psychiatric: Reports: No Symptoms - Patient Data Vitals - Most Recent: Last Vital Signs Temp 98 F 11/02/21 08:58 Pulse 89 11/02/21 08:58 Resp 20 11/02/21 08:58 BP 151/78 H 11/02/21 08:58 Pulse Ox 97 11/02/21 08:58 Weight - Most Recent: 125 lb I&O - Last 24 hours: Intake & Output 11/01/21 11/02/21 11/02/21 22:59 06:59 14:59 Intake Total 750 750 Balance 750 750 Med Orders - Current: Current Medications Acetaminophen (Acetaminophen 325 Mg Tab) 650 mg PO Q6H PRN PRN Reason: Pain Last Admin: 11/02/21 09:13 Dose: 650 mg Documented by: Albuterol (Albuterol 0.083% 2.5 Mg/3 Ml Neb Soln) 2.5 mg INH Q6HR PRN PRN Reason: Dyspnea Amoxicillin/Clavulanate Potassium (Amoxicillin/Clavulanate K 875-125 Mg Tab) 1 tab PO BID [facility] Last Admin: 11/02/21 09:03 Dose: 1 tab Documented by: Buspirone HCl (Buspirone 15 Mg Tab) 5 mg PO BID [facility] Last Admin: 11/02/21 09:04 Dose: 5 mg Documented by: Diphenhydramine HCl (Diphenhydramine 50 Mg Cap) 50 mg PO BEDTIME PRN PRN Reason: Sleep Last Admin: 11/01/21 22:45 Dose: 50 mg Documented by: Duloxetine HCl (Duloxetine 30 Mg Cap) 60 mg PO BID [facility] Last Admin: 11/02/21 09:02 Dose: 60 mg Documented by: Enoxaparin Sodium (Enoxaparin 40 Mg/0.4 Ml Syringe) 40 mg SUBCUT DAILY [facility] Last Admin: 11/02/21 09:00 Dose: 40 mg Documented by: Gabapentin (Gabapentin 400 Mg Cap) 800 mg PO TID [facility] Last Admin: 11/02/21 09:02 Dose: 800 mg Documented by: Miscellaneous Information (Check Nicotine Patch) 1 ea TRDERM BEDTIME [facility] Last Admin: 11/01/21 21:13 Dose: 1 ea Documented by: Montelukast Sodium (Montelukast 10 Mg Tab) 10 mg PO BEDTIME [facility] Last Admin: 11/01/21 21:12 Dose: 10 mg Documented by: Multivitamins/Minerals/Vitamin C (Multivitamin Tab) 1 tab PO DAILY [facility] Last Admin: 11/02/21 09:03 Dose: 1 tab Documented by: Nicotine (Nicotine 14 Mg/24 Hr Patch) 14 mg TRDERM DAILY [facility] Last Admin: 11/02/21 09:03 Dose: Not Given Documented by: Non-Formulary Medication (Amphetamine/Dextroamphetamine [Adderall Xr]) 7.5 mg PO BID [facility] Omeprazole (Omeprazole 20 Mg Cap.Cr) 20 mg PO BIDAC PRN PRN Reason: Other Ondansetron HCl (Ondansetron 4 Mg/2 Ml Sdv) 4 mg IVPUSH Q6H PRN PRN Reason: Nausea/Vomiting Last Admin: 10/31/21 12:35 Dose: 4 mg Documented by: Prednisone (Prednisone 20 Mg Tab) 40 mg PO WITHBREAKFAST [facility] Last Admin: 11/02/21 09:02 Dose: 40 mg Documented by: Promethazine HCl/Codeine (Codeine/Promethazine 10-6.25 Mg/5 Ml Syrup 5 Ml Ud Cup) 5 ml PO Q4HR PRN PRN Reason: Cough Last Admin: 11/01/21 21:16 Dose: 5 ml Documented by: Simethicone (Simethicone 80 Mg Tab.Chew) 160 mg PO Q6H PRN PRN Reason: Gas Last Admin: 11/02/21 09:14 Dose: 160 mg Documented by: Sodium Chloride (Sodium Chloride 0.9% 10 Ml Syringe) 10 ml FLUSH ASDIRECTED PRN PRN Reason: Keep Vein Open Last Admin: 10/31/21 12:35 Dose: 10 ml Documented by: Discontinued Medications Acetaminophen (Acetaminophen 325 Mg Tab) 650 mg PO Q4H PRN PRN Reason: Pain/Fever Last Admin: 11/01/21 12:58 Dose: 650 mg Documented by: Diazepam (Diazepam 10 Mg/2 Ml Syringe) 5 mg IVPUSH ONETIME ONE Stop: 10/30/21 18:15 Last Admin: 10/30/21 18:25 Dose: 5 mg Documented by: Fentanyl (Fentanyl 100 Mcg/2 Ml Sdv) Confirm Administered Dose 100 mcg .ROUTE .STK-MED ONE Stop: 10/30/21 14:31 Last Admin: 10/30/21 15:29 Dose: Not Given Documented by: Fentanyl (Fentanyl 100 Mcg/2 Ml Sdv) 100 mcg IVPUSH ONETIME ONE; Protocol Stop: 10/30/21 15:29 Last Admin: 10/30/21 14:27 Dose: 100 mcg Documented by: Fentanyl (Fentanyl 100 Mcg/2 Ml Sdv) 50 mcg IVPUSH ONETIME ONE; Protocol Stop: 10/30/21 15:33 Last Admin: 10/30/21 16:01 Dose: 50 mcg Documented by: Fentanyl (Fentanyl 100 Mcg/2 Ml Sdv) 50 mcg IVPUSH ONETIME ONE; Protocol Stop: 10/30/21 18:15 Last Admin: 10/30/21 18:29 Dose: 50 mcg Documented by: Hydromorphone HCl (Hydromorphone 0.5 Mg/0.5 Ml Syringe) 0.5 mg IVPUSH ONETIME ONE Stop: 10/30/21 17:13 Last Admin: 10/30/21 17:49 Dose: 0.5 mg Documented by: Hydromorphone HCl (Hydromorphone 0.5 Mg/0.5 Ml Syringe) 0.5 mg IVPUSH Q2H PRN PRN Reason: Pain (severe 7-10) Hydromorphone HCl (Hydromorphone 1 Mg/Ml Syringe) Confirm Administered Dose 1 mg .ROUTE .STK-MED ONE Stop: 10/30/21 20:35 Last Admin: 10/30/21 20:47 Dose: Not Given Documented by: Hydromorphone HCl (Hydromorphone 1 Mg/Ml Syringe) Confirm Administered Dose 1 mg .ROUTE .STK-MED ONE Stop: 10/30/21 20:36 Last Admin: 10/30/21 23:02 Dose: Not Given Documented by: Hydromorphone HCl (Hydromorphone 1 Mg/Ml Syringe) 1 mg IVPUSH ONETIME ONE Stop: 10/30/21 20:45 Last Admin: 10/30/21 20:48 Dose: 1 mg Documented by: Hydromorphone HCl (Hydromorphone 1 Mg/Ml Syringe) 1 mg IVPUSH Q2H PRN PRN Reason: Pain (severe 7-10) Last Admin: 11/01/21 06:33 Dose: 1 mg Documented by: Cefazolin Sodium 1 gm/ Sodium (Chloride) 50 mls @ 100 mls/hr IV ONETIME ONE Stop: 10/30/21 16:05 Last Admin: 10/30/21 16:01 Dose: 100 mls/hr Documented by: Lactated Ringer's (Ringers, Lactated) 1,000 mls @ 100 mls/hr IV ASDIRECTED [facility] Last Infusion: 11/01/21 09:38 Dose: Infused Documented by: Ketorolac Tromethamine (Ketorolac 30 Mg/Ml Sdv) 30 mg IVPUSH ONETIME ONE Stop: 11/01/21 18:34 Last Admin: 11/01/21 19:33 Dose: 30 mg Documented by: Ketorolac Tromethamine (Ketorolac 30 Mg/Ml Sdv) 30 mg IM ONETIME ONE Stop: 11/01/21 18:39 Last Admin: 11/01/21 19:36 Dose: 30 mg Documented by: Lidocaine HCl (Lidocaine 1% 30 Ml Sdv) 30 ml INJECT ONETIME ONE Stop: 10/30/21 14:23 Last Admin: 10/30/21 14:27 Dose: 30 ml Documented by: Lorazepam (Lorazepam 2 Mg/Ml Sdv) 2 mg IVPUSH ONETIME ONE Stop: 10/30/21 14:22 Last Admin: 10/30/21 17:10 Dose: Not Given Documented by: Lorazepam (Lorazepam 2 Mg/Ml Sdv) 1 mg IVPUSH Q6H PRN PRN Reason: Anxiety Last Admin: 11/01/21 06:34 Dose: 1 mg Documented by: Lorazepam (Lorazepam 2 Mg/Ml Sdv) 1 mg IVPUSH ONETIME ONE Stop: 10/31/21 18:01 Last Admin: 10/31/21 18:59 Dose: 1 mg Documented by: Methylprednisolone Sodium Succinate (Methylprednisolone Sodium Succinate 40 Mg/1 Ml Sdv) 40 mg IVPUSH Q6H [facility] Last Admin: 11/02/21 00:51 Dose: Not Given Documented by: Midazolam HCl (Midazolam 1 Mg/Ml 2 Ml Sdv) 2 mg IVPUSH ONETIME ONE Stop: 10/30/21 14:25 Last Admin: 10/30/21 14:44 Dose: 2 mg Documented by: Midazolam HCl (Midazolam 1 Mg/Ml 2 Ml Sdv) Confirm Administered Dose 2 mg .ROUTE .STK-MED ONE Stop: 10/30/21 14:39 Last Admin: 10/30/21 15:29 Dose: Not Given Documented by: Midazolam HCl (Midazolam 1 Mg/Ml 2 Ml Sdv) 2 mg IVPUSH ONETIME ONE Stop: 10/30/21 15:29 Last Admin: 10/30/21 14:27 Dose: 2 mg Documented by: Multivitamins/Minerals (Multivitamins With Iron/Calcium/Folic Acid/Minerals Tab) 1 tab PO DAILY [facility] Last Admin: 10/31/21 13:06 Dose: Not Given Documented by: Non-Formulary Medication (Dextroamphetamine/Amphetamine [Adderall 7.5 Mg Tablet]) 7.5 mg PO BID [facility] Ondansetron HCl (Ondansetron 4 Mg/2 Ml Sdv) 4 mg IV ONETIME ONE Stop: 10/30/21 15:34 Last Admin: 10/30/21 16:01 Dose: 4 mg Documented by: - Exam Quality Assessment: Reports: DVT Prophylaxis. Denies: Supplemental Oxygen, Urine Catheter, Skin Breakdown General: Reports: Alert, Oriented, Cooperative, No Acute Distress HEENT: Reports: EOMI Neck: Reports: Supple, No JVD, Other (pain on palpation of bilateral levator scapulae and bialteral rhomboids. baseline) Lungs: Reports: Clear to Auscultation, Normal Respiratory Effort. Denies: Decreased Breath Sounds, Crackles, Rales, Rhonchi, Wheezing Cardiovascular: Reports: Regular Rate, Regular Rhythm. Denies: Murmurs, Gallops, Rubs GI/Abdominal Exam: Soft (Female) Exam: Deferred Rectal (Female) Exam: Deferred Back Exam: Reports: Normal Inspection, Full Range of Motion Skin: Reports: Warm, Dry Wound/Incisions: Reports: Healing Well, Drainage (mild serosanguinous drainage from chest tube insertion site. ). Denies: Erythema Neurological: Reports: No New Focal Deficit Psy/Mental Status: Reports: Normal Affect, Normal Mood *Q Meaningful Use (DIS) - VTE *Q VTE Mechanical Contraindications *Q: Tx/Proc Refused byPt VTE Pharmacological Contraindications *Q: Tx/Proc Refused by Pt VTE Anticoagulation Contraindications: Tx/proc Refused by PT - Stroke *Q Aspirin Contraindications Stroke *Q: Patient Refusal Anticoagulation Contraindications Stroke *Q: TX/PROC Refused by PT Antithrombotic Contraindications Stroke *Q: TX/PROC Refused by PT Statin Contraindications Stroke *Q: TX/PROC Refused by PT Rehabilitation Assessment Contraindication *Q: Tx/proc refused by pt - AMI *Q Aspirin Contraindications AMI *Q: TX/PROC Refused by PT Statin Contraindications AMI *Q: TX/Proc Refused by PT
[2021-11-02 12:19] VITALS: BP 148/77; PULSE 81
== END 2021-11-02 14:00 | disposition home or self-care (01) | DRG 143 ==
LOC: DL.ED 14:14 → DL.MS 16:43 → OBSVTOIN 19:59 → EEVIPCON 19:59
PROVIDERS: ADMIT Internal Medicine; ATTEND Internal Medicine
DX: J93.83 Other pneumothorax (principal); J98.11 Atelectasis; M79.7 Fibromyalgia; F17.210 Nicotine dependence, cigarettes, uncomplicated; K21.9 Gastro-esophageal reflux disease without esophagitis; F41.9 Anxiety disorder, unspecified; F32.A Depression, unspecified; F90.9 Attention-deficit hyperactivity disorder, unspecified type; J44.1 Chronic obstructive pulmonary disease with (acute) exacerbation; Z20.822 Contact with and (suspected) exposure to COVID-19; Z28.82 Immunization not carried out because of caregiver refusal; Z86.16 Personal history of COVID-19; Z88.2 Allergy status to sulfonamides; Z79.899 Other long term (current) drug therapy; Z90.710 Acquired absence of both cervix and uterus
CPT/HCPCS: 0240U; 32551; 36415; 71045; 80053; 85027; 96365; 96375; 99285-25; A9270-GY; J0690; J1170; J1650; J1885; J2060; J2250; J2405; J2920; J3010; J3360; J7120; J7512; Q0163; U0002

== ENCOUNTER 2024-12-22 06:54 | Day surgery (SDC) | payer BC ==
[2024-12-22] MEDS: Dextrose 5%-0.45% NaCl 1,000 ML IV SCH (07:18)
[2024-12-22] MEDS ORDERED: fentaNYL 100 MCG/2 ML SDV IV ONE (07:34)
[2024-12-22] MEDS ORDERED: Midazolam 1 MG/ML 2 ML SDV IV ONE (07:34)
[2024-12-22] MEDS ORDERED: fentaNYL 100 MCG/2 ML SDV ONE (07:34)
[2024-12-22] MEDS ORDERED: Midazolam 1 MG/ML 2 ML SDV ONE (07:34)
[2024-12-22] MEDS: fentaNYL 100 MCG/2 ML SDV IV ONE ×6 (07:45→07:55)
[2024-12-22] MEDS: Midazolam 1 MG/ML 2 ML SDV IV ONE ×6 (07:46→07:50)
[2024-12-22 09:08] VITALS: BP 112/71; PULSE 67
== END 2024-12-22 09:40 | disposition home or self-care (01) ==
LOC: DL.ENDO 06:54
PROVIDERS: ATTEND Internal Medicine Gastroenterology
DX: K62.5 Hemorrhage of anus and rectum (principal); D75.839 Thrombocytosis, unspecified
CPT/HCPCS: 45378; J2250; J3010; J7799